=== PATIENT | female | born 1975 | race Caucasian/White ===

== ENCOUNTER → 2016-08-15 | Outpatient (CLI) | payer OTHER ==
--- NOTE | 2016-08-15 15:06 | KCIC ---
PROCEDURE Pelvic ultrasound. HISTORY Follow up right ovarian lesion. TECHNIQUE Transabdominal imaging was initially performed with transvaginal imaging also performed to better evaluate the adnexa. COMPARISON November 10, 2015. FINDINGS Uterus measures 8.2 x 5.4 x 4.6 centimeters in size. Endometrial stripe measures 6 millimeters. No uterine mass is identified. Nabothian cyst is re-demonstrated. There is a small amount of free pelvic fluid. Left ovary is grossly unremarkable with color flow and waveform documented. Right ovary demonstrates normal color flow and waveform. A hypoechoic lesion with color flow within the right ovary measures 13 x 11 x 14 millimeters, compared to 9 x 10 x 12 millimeters on prior. IMPRESSION Re-demonstrated hypoechoic lesion with some color flow in the right ovary, with minimal increase in size. Some of this increase may be inter observer variability, margins are not well-defined. One year follow-up would be recommended. Electronically signed by: Jonah Nguyen MD (Aug 15, 2016 15:05:01)
== END | disposition home or self-care (01) ==
LOC: KCIC US 13:06
PROVIDERS: ATTEND Family Medicine
DX: N83.201 Unspecified ovarian cyst, right side (principal); N88.8 Other specified noninflammatory disorders of cervix uteri
CPT/HCPCS: 76830; 76856

== ENCOUNTER 2017-10-25 19:17 | Emergency (ER) | payer OTHER ==
[2017-10-25 19:37] LABS: ADD MAN DIFF? NO
[2017-10-25 19:40] LABS: BASO % 0 % (0-3); EOS # 0.2 x10^3/uL (0.0-0.7); EOS % 1 % (0-3); HEMATOCRIT 47.7 % (36.0-47.0); HEMOGLOBIN 15.8 g/dL (12.0-15.5); LYMPH # 3.2 x10^3/uL (1.0-4.8); LYMPH % 24 % (24-48); MEAN CORPUSCULAR HEMOGLOBIN 30 pg (25-35); MEAN CORPUSCULAR HGB CONC 33 g/dL (31-37); MEAN CORPUSCULAR VOLUME 90 fL (79-100); MONO # 0.7 x10^3/uL (0.0-1.1); MONO % 5 % (0-9); NEUT # 9.3 x10^3uL (1.8-7.7); NEUT % 70 % (31-73); PLATELET COUNT 373 x10^3/uL (140-400); RED BLOOD COUNT 5.33 x10^6/uL (3.50-5.40); RED CELL DISTRIBUTION WIDTH 14.4 % (11.5-14.5); WHITE BLOOD COUNT 13.4 x10^3/uL (4.0-11.0)
[2017-10-25 19:40] LABS: URINE HCG POC HCG NEGATIVE (Negative)
[2017-10-25 19:41] LABS: BILIRUBIN,URINE SMALL (NEG); CLARITY,URINE CLEAR; COLOR,URINE YELLOW; GLUCOSE,URINE NEGATIVE (NEG); NITRITE,URINE NEGATIVE (NEG); PH,URINE 5.5; PROTEIN,URINE NEGATIVE (NEG-TRACE); UROBILINOGEN,URINE 0.2 mg/dL (0.2 mg/dL)
[2017-10-25 19:48] LABS: ANION GAP 15 (6-14); BACTERIA,URINE FEW /HPF (0-FEW); BLOOD UREA NITROGEN 18 mg/dL (7-20); BUN/CREATININE RATIO 23 (6-20); CALCIUM 9.2 mg/dL (8.5-10.1); CARBON DIOXIDE 22 mmol/L (21-32); CHLORIDE 104 mmol/L (98-107); CREATININE 0.8 mg/dL (0.6-1.0); GLUCOSE 103 mg/dL (70-99); POTASSIUM 3.8 mmol/L (3.5-5.1); SODIUM 141 mmol/L (136-145); SQUAMOUS EPITHELIAL CELL,UR MOD /LPF; WBC,URINE RARE /HPF (0-4)
[2017-10-25 19:49] LABS: NEG OBC SER NEG; POS OBC SER POS; PREG TEST PT QUAL NEGATIVE (NEG)
[2017-10-25 19:54] LABS: ALBUMIN 3.9 g/dL (3.4-5.0); ALK PHOS 154 U/L (46-116); ALT (SGPT) 54 U/L (14-59); AST (SGOT) 21 U/L (15-37); LIPASE 64 U/L (73-393); TOTAL BILIRUBIN 0.4 mg/dL (0.2-1.0)
[2017-10-25] MEDS: IV NORMAL SALINE 1000ML BAG 1,000 ML IV (20:04)
[2017-10-25] MEDS: FAMOTIDINE 20 MG/2 ML VIAL IVP (20:05)
[2017-10-25] MEDS: fentaNYL PF VIAL 100 MCG/2 ML VIAL IV (20:05)
[2017-10-25] MEDS: ONDANSETRON PF 4 MG/2 ML VIAL. IV (20:05)
[2017-10-25] MEDS ORDERED: IOHEXOL 300 MG/ML 100ML VIAL. IV (20:30)
[2017-10-25] MEDS ORDERED: CONTRAST GIVEN MC (20:30)
== END 2017-10-25 21:25 | disposition home or self-care (01) ==
LOC: ER 19:17
DX: R10.13 Epigastric pain (principal); R11.2 Nausea with vomiting, unspecified; Z90.49 Acquired absence of other specified parts of digestive tract; F17.200 Nicotine dependence, unspecified, uncomplicated; Z88.2 Allergy status to sulfonamides
CPT/HCPCS: 36415; 74177; 76705; 80053; 81001; 81025; 83690; 84703; 85025; 96361; 96374; 96375; 99285-25; J2405; J3010; J7030; S0028

== ENCOUNTER → 2017-11-13 | Outpatient (CLI) | payer OTHER ==
[2017-11-13] MEDS: SINCALIDE IV (08:45)
[2017-11-13] MEDS: NORMAL SALINE IV (08:45)
== END | disposition home or self-care (01) ==
LOC: NM 08:36
DX: R10.13 Epigastric pain (principal); R11.2 Nausea with vomiting, unspecified; R19.7 Diarrhea, unspecified
CPT/HCPCS: 78226; 96374; 96375; A9537; J2805

== ENCOUNTER → 2017-12-04 | Outpatient (CLI) | payer OTHER ==
[2017-12-04 16:13] LABS: ADD MAN DIFF? NO
[2017-12-04 16:14] LABS: BASO % 1 % (0-3); EOS # 0.3 x10^3/uL (0.0-0.7); EOS % 3 % (0-3); HEMATOCRIT 44.2 % (36.0-47.0); LYMPH # 3.9 x10^3/uL (1.0-4.8); LYMPH % 40 % (24-48); MEAN CORPUSCULAR HEMOGLOBIN 31 pg (25-35); MEAN CORPUSCULAR HGB CONC 34 g/dL (31-37); MEAN CORPUSCULAR VOLUME 90 fL (79-100); MONO # 0.7 x10^3/uL (0.0-1.1); MONO % 8 % (0-9); NEUT # 4.8 x10^3uL (1.8-7.7); NEUT % 49 % (31-73); PLATELET COUNT 312 x10^3/uL (140-400); RED CELL DISTRIBUTION WIDTH 14.5 % (11.5-14.5); WHITE BLOOD COUNT 9.8 x10^3/uL (4.0-11.0)
[2017-12-04 16:33] LABS: ALBUMIN 3.7 g/dL (3.4-5.0); ANION GAP 9 (6-14); BLOOD UREA NITROGEN 15 mg/dL (7-20); CALCIUM 8.8 mg/dL (8.5-10.1); CARBON DIOXIDE 27 mmol/L (21-32); CHLORIDE 105 mmol/L (98-107); CREATININE 0.8 mg/dL (0.6-1.0); GLUCOSE 92 mg/dL (70-99); POTASSIUM 3.9 mmol/L (3.5-5.1); SODIUM 141 mmol/L (136-145); TOTAL BILIRUBIN 0.2 mg/dL (0.2-1.0)
== END | disposition home or self-care (01) ==
LOC: SURGPAT 13:27
DX: Z01.812 Encounter for preprocedural laboratory examination (principal); Z90.49 Acquired absence of other specified parts of digestive tract
CPT/HCPCS: 36415; 80048; 82040; 82247; 85025

== ENCOUNTER → 2017-12-11 | Day surgery (SDC) | payer OTHER ==
[~2017-12-11] MED LIST: DEXAMETHASONE SOD PHOS 20 MG/5 ML VIAL.; FAMOTIDINE 20 MG/2 ML VIAL; GLUCAGON,HUMAN RECOMBINANT 1 MG/ML VIAL.; GLYCOPYRROLATE 1 MG/5 ML VIAL.; LIDOCAINE 1% PF 2 ML VIAL. ID; MIDAZOLAM HCL/PF 2 MG/2 ML VIAL.; MORPHINE SULFATE 4 MG/ML DISP.SYRIN.; NEOSTIGMINE METHYLSULFATE 5 MG/5 ML SYRINGE.; ONDANSETRON PF 4 MG/2 ML VIAL.; PROCHLORPERAZINE 10 MG/2 ML VIAL.; PROPOFOL 20 ML IV; ROCURONIUM 50 MG/5 ML VIAL.; SEVOFLURANE 31 TO 60 MINUTES. IH; SURGICEL HEMOSTAT 4X8 EACH.; ceFAZolin 2GM PREMIX 2 GM/50 ML BAG IV; fentaNYL PF VIAL 100 MCG/2 ML VIAL; fentaNYL PF VIAL 100 MCG/2 ML VIAL IV
[2017-12-11] MEDS: IV RINGERS,LACTATED 1000ML 1,000 ML IV (08:32)
[2017-12-11] MEDS: SCOPOLAMINE 1.5MG PATCH. TD (08:39)
[2017-12-11 08:49] LABS: NEG OBC UR NEG; POS OBC UR POS; U PREG PATIENT NEGATIVE (NEG)
[2017-12-11] MEDS: BUPIVACAINE-EPI 0.25%-1:200000 50 ML VIAL. (09:18)
[2017-12-11] MEDS: IOHEXOL 300 MG/ML 100ML VIAL. (09:18)
[2017-12-11] MEDS: PROCHLORPERAZINE 10 MG/2 ML VIAL. IV (10:16)
[2017-12-11] MEDS: MORPHINE SULFATE 4 MG/ML DISP.SYRIN. IV ×2 (10:17→10:28)
[2017-12-11] MEDS: fentaNYL PF VIAL 100 MCG/2 ML VIAL IV ×2 (10:53→11:43)
[2017-12-11] MEDS: oxyCODONE/APAP 5/325 1 TAB TABLET PO (11:43)
[2017-12-11] MEDS: ONDANSETRON PF 4 MG/2 ML VIAL. IV (12:14)
== END | disposition home or self-care (01) ==
LOC: SURG 07:15
DX: K81.1 Chronic cholecystitis (principal); Z79.899 Other long term (current) drug therapy; Z90.49 Acquired absence of other specified parts of digestive tract; K08.409 Partial loss of teeth, unspecified cause, unspecified class; Z98.890 Other specified postprocedural states; Z83.3 Family history of diabetes mellitus; Z82.61 Family history of arthritis; Z83.6 Family history of other diseases of the respiratory system; F17.210 Nicotine dependence, cigarettes, uncomplicated; Z88.2 Allergy status to sulfonamides
CPT/HCPCS: 47563; 74300; 81025; 88304; A7015; J0690; J0780; J1100; J1610; J2250; J2270; J2405; J2704; J2710; J3010; J3490; J7030; Q9967; S0028